=== PATIENT | male | born 1965 ===

== ENCOUNTER 2022-11-10 12:47 | Day surgery (SDC) | payer OTHER ==
[~2022-11-10] VITALS: Ht 170.2 cm; Wt 83.9 kg
--- NOTE | 2022-11-10 15:08 | NUR ---
11/10/22 1508 Emilia Hughes ROPIVACAINE 0.5% 20 ML MIXED & VERIFIED W/ EPI 0.10 (1MG/ML) PER ORDER TO MAKE ROPIVACAINE 0.5% 1:200,000 FOR INJECTION AT OPSITE BY DR ORDOÑEZ. 20 ML INJECTED.
--- NOTE | 2022-11-10 15:32 | NUR ---
11/10/22 1532 VITALY HILL PT VERY SLEEPY AFTER PROCEDURE. DR. DELGADILLO - JAW THRUST FOR APPR 5 MIN. O2 NOT NEEDED PER . PT MEJIA WOKE A FEW MINUTES AGO AND IS DOING WELL. PT FELL BACK TO SLEEP BUT O2 94% ON RA
[2022-11-10 15:40] VITALS: BP 131/90
== END 2022-11-10 16:42 | disposition home or self-care (01) ==
LOC: ORSCSDS 12:47
PROVIDERS: Podiatrist Foot & Ankle Surgery
PROC: 0LBW0ZZ Excision of Left Foot Tendon, Open Approach (ICD-10-PCS; principal; 2022-11-10 14:15)
DX: M67.472 Ganglion, left ankle and foot (principal)
CPT/HCPCS: J0171; J0690; J1100; J2250; J2405; J2704; J2795; J3010